=== PATIENT | male | born 1975 | race Caucasian/White ===

== ENCOUNTER → 2017-03-03 | Outpatient (CLI) | payer BC ==
[~2017-03-03] MED LIST: IBUP600T44 PO
--- NOTE | 2017-03-03 12:17 | DIAGNOSTIC IMAGING REPORT ---
ULTRASOUND TESTES AND SCROTUM CLINICAL HISTORY: Testicular pain. COMPARISON STUDY: No priors. TECHNIQUE: Real-time, grayscale, and color Doppler sonography of the testes and scrotum is performed. Images are reviewed in the transverse and longitudinal planes. FINDINGS: The testes are normal in size and homogeneous in echotexture. The right testis measures 4.5 x 2.3 x 2.6 cm and the left testis measures 4.8 x 2.1 x 2.8 cm. No intratesticular mass is seen. Testicular blood flow is normal and symmetric. Normal Doppler waveforms are identified in both testes. The epididymal heads are normal in appearance. The right epididymal head measures 1.0 cm in length and the left epididymal head measures 1.2 cm in length. There are small bilateral varicoceles which measure up to 3 mm. No hydrocele is seen. IMPRESSION: 1. Unremarkable sonographic assessment of the testes. 2. Small bilateral varicoceles. Electronically signed by: Rohan Chandler M.D. 03/03/2017 12:16 PM Dictated Date/Time: 03/03/2017 12:15 PM
== END | disposition home or self-care (01) ==
LOC: C.ULTR 11:33
PROVIDERS: ATTEND Internal Medicine
DX: N50.819 Testicular pain, unspecified (principal); I86.1 Scrotal varices

== ENCOUNTER → 2017-08-15 | Outpatient (CLI) | payer BC ==
[2017-08-15 13:37] LABS: BLOOD UREA NITROGEN 12 mg/dl (7-18); BUN/CREATININE RATIO 12.2 (10-20); CALCIUM 8.9 mg/dl (8.5-10.1); CARBON DIOXIDE 30 mmol/L (21-32); CHLORIDE 103 mmol/L (98-107); CREATININE 0.95 mg/dl (0.60-1.40); GLUCOSE 87 mg/dl (70-99); POTASSIUM 3.6 mmol/L (3.5-5.1); SODIUM 136 mmol/L (136-145)
[2017-08-15 13:43] LABS: CHOLESTEROL 197 mg/dl (0-200); CHOLESTEROL/HDL RATIO 3.6; HDL CHOLESTEROL 54 mg/dl; TRIGLYCERIDES 65 mg/dl (0-150); VERY LOW DENSITY LIPOPROT CALC 13 mg/dl
== END | disposition home or self-care (01) ==
LOC: C.LABSPEC 12:32
PROVIDERS: ATTEND Internal Medicine
DX: Z00.00 Encounter for general adult medical examination without abnormal findings (principal)

== ENCOUNTER → 2017-08-22 | Outpatient (CLI) | payer BC ==
[~2017-08-22] VITALS: Ht 188 cm; Wt 88.8 kg
[2017-08-22 15:03] VITALS: BP 129/78; PULSE 79; Ht 188 cm; Wt 88.8 kg
== END | disposition home or self-care (01) ==
LOC: C.NEUR 13:52
PROVIDERS: ATTEND Internal Medicine Pulmonary Disease
DX: R06.83 Snoring (principal); R06.81 Apnea, not elsewhere classified; R53.83 Other fatigue; G47.19 Other hypersomnia

== ENCOUNTER → 2017-08-29 | Outpatient (CLI) | payer BC ==
--- NOTE | 2017-09-01 19:20 | POLYSOMNOGRAPH REPORT ---
CLINICAL DATA: A 42-year-old male with BMI of 25.14 referred for evaluation of mild snoring, witnessed apnea, fatigue and excessive daytime sleepiness. His [place] sleepiness score was 12/24. On the evening of 08/29/2017, a home sleep apnea test was performed using a [employer] type 3 monitor. RECORDING RESULTS: Total recording time was 10 hours. The patient's estimated sleep time and patient monitoring time was 9.1 hours. RESPIRATORY DATA: There was no evidence of clinically significant sleep apnea seen. The DEDRICK was 3.4. There were 2 obstructive, 2 mixed, and 10 central apneic episodes. There were 17 hypopneic episodes. The longest respiratory event was 30 seconds. OXIMETRY DATA: No significant hypoxemia was seen. Mean saturation was 94%. Oxygen kinga was 87%. Time below 89% was less than 1 minute. HEART RATE DATA: Heart rates ranged from 45-59 beats per minute. SNORING DATA: Snoring was recorded throughout the night. IMPRESSION: No evidence of clinically significant sleep apnea/hypopnea or nocturnal hypoxemia to explain this patient's symptoms. RECOMMENDATIONS: The patient should continue to practice good sleep hygiene. AD
== END | disposition home or self-care (01) ==
LOC: C.NEUR 09:14
PROVIDERS: ATTEND Internal Medicine Pulmonary Disease
DX: G47.13 Recurrent hypersomnia (principal); R53.83 Other fatigue; R06.83 Snoring; R06.81 Apnea, not elsewhere classified; G47.19 Other hypersomnia